=== PATIENT | male | born 1945 | race Caucasian/White ===

== ENCOUNTER 2017-12-16 06:00 | Day surgery (SDC) | payer MEDICARE ==
[~2017-12-16] VITALS: Ht 182.9 cm; Wt 124.7 kg
[~2017-12-16 06:00] MED LIST: AMLO5TAB2 PO; APIX5TAB4 PO; ASPI-555 PO; ATOR80TA PO; BISO5TAB2 PO; LOSA100T2 PO; METF500T6 PO; MULT-1258 PO
[2017-12-16 06:39] VITALS: BP 150/80
[2017-12-16] MEDS ORDERED: SODIUM CHLORIDE 0.9% 1000ML 1,000 ML IV ONE (06:50)
[2017-12-16] MEDS ORDERED: FENTANYL CITRATE PF 50 MCG/1 ML 2ML VIAL ONE (07:29)
[2017-12-16] MEDS ORDERED: PROPOFOL 10 MG/ML 20ML VIAL IV ONE ×2 (07:29→07:52)
[2017-12-16] MEDS ORDERED: GLYCOPYRROLATE 0.2 MG/ML 5 ML VIAL ONE (07:29)
[2017-12-16] MEDS ORDERED: LIDOCAINE HCL 2% 20ML ONE (07:30)
[2017-12-16 07:57] VITALS: BP 100/63
== END 2017-12-16 08:28 ==
LOC: DAH 06:00
PROVIDERS: ATTEND Internal Medicine Gastroenterology
DX: Z09 Encounter for follow-up examination after completed treatment for conditions other than malignant neoplasm (principal); Z86.010 Personal history of colon polyps; K63.5 Polyp of colon; I10 Essential (primary) hypertension; I48.91 Unspecified atrial fibrillation; E11.9 Type 2 diabetes mellitus without complications; E78.5 Hyperlipidemia, unspecified; Z98.890 Other specified postprocedural states; Z68.36 Body mass index [BMI] 36.0-36.9, adult; Z79.899 Other long term (current) drug therapy
CPT/HCPCS: 45380; 82948 ×3; 88305; 93005; A4606; J2704 ×2; J3010; J3490 ×2; J7030

== ENCOUNTER 2024-02-12 05:32 | Day surgery (SDC) | payer MEDICARE ==
[~2024-02-12] VITALS: Ht 185.4 cm; Wt 120.2 kg
[2024-02-12] VITALS (12 sets, daily range): BP systolic 112–160; BP diastolic 64–86; PULSE 52–64; RESP 15–17
[~2024-02-12 05:32] MED LIST changes: +AMLO2.5T4 PO; -AMLO5TAB2 PO; +APIX5TAB PO; -APIX5TAB4 PO; -ASPI-555 PO; +ASPI-556 PO; +BISO5TAB19 PO; -BISO5TAB2 PO; +EZET10TA48 PO; +FURO20TA4 PO; +LOSA-420 PO; -LOSA100T2 PO; +METF-444 PO; -METF500T6 PO
[2024-02-12] MEDS: 0.9%NACL 1000ML 1,000 ML IV ONE (06:20)
[2024-02-12] MEDS ORDERED: LIDOCAINE HCL 1% 20 ML VIAL ONE (07:07)
[2024-02-12] MEDS ORDERED: PROPOFOL 10 MG/ML 20ML VIAL IV ONE (07:07)
[2024-02-12] MEDS ORDERED: SIMETHICONE 40 MG/0.6 ML ML ONE (07:13)
== END 2024-02-12 08:39 | disposition home or self-care (01) ==
LOC: ENDO 05:32 → DAH 05:32 → ENDO 08:39
PROVIDERS: ATTEND Internal Medicine
DX: R93.3 Abnormal findings on diagnostic imaging of other parts of digestive tract (principal); I10 Essential (primary) hypertension; E78.00 Pure hypercholesterolemia, unspecified; E11.9 Type 2 diabetes mellitus without complications; I48.91 Unspecified atrial fibrillation; Z79.82 Long term (current) use of aspirin; I25.10 Atherosclerotic heart disease of native coronary artery without angina pectoris; Z79.01 Long term (current) use of anticoagulants; Z79.84 Long term (current) use of oral hypoglycemic drugs; Z95.5 Presence of coronary angioplasty implant and graft; Z98.890 Other specified postprocedural states; Z79.899 Other long term (current) drug therapy
CPT/HCPCS: 82948 ×2; 45378; J7030 ×2; J2704; A4620; A4215 ×2; A4223; A7002; A4222; A4221; A4663; J3490

== ENCOUNTER 2024-02-13 10:10 | Day surgery (SDC) | payer MEDICARE ==
[~2024-02-13] VITALS: Ht 185.4 cm; Wt 120.2 kg
[2024-02-13] VITALS (12 sets, daily range): BP systolic 150–170; BP diastolic 71–89; PULSE 42–60; RESP 15–20
[2024-02-13] MEDS: 0.9%NACL 1000ML 1,000 ML IV ONE (11:10)
[2024-02-13] MEDS ORDERED: LIDOCAINE PF 100MG/5ML (2%) SYRINGE 5ML ONE (13:30)
[2024-02-13] MEDS ORDERED: PROPOFOL 10 MG/ML 20ML VIAL IV ONE ×2 (13:30→13:46)
== END 2024-02-13 15:15 | disposition home or self-care (01) ==
LOC: DAH 10:10 → ENDO 10:10
PROVIDERS: ATTEND Internal Medicine Gastroenterology
DX: R93.3 Abnormal findings on diagnostic imaging of other parts of digestive tract (principal); K62.1 Rectal polyp; K57.30 Diverticulosis of large intestine without perforation or abscess without bleeding; I10 Essential (primary) hypertension; E11.9 Type 2 diabetes mellitus without complications; E78.00 Pure hypercholesterolemia, unspecified; I25.10 Atherosclerotic heart disease of native coronary artery without angina pectoris; E66.9 Obesity, unspecified; I48.91 Unspecified atrial fibrillation; Z79.899 Other long term (current) drug therapy; Z79.01 Long term (current) use of anticoagulants; Z79.84 Long term (current) use of oral hypoglycemic drugs; Z79.82 Long term (current) use of aspirin; Z68.34 Body mass index [BMI] 34.0-34.9, adult; Z95.5 Presence of coronary angioplasty implant and graft
CPT/HCPCS: 82948 ×2; 45380; 45385; J7030 ×2; J2001; J2704 ×2; A4620; A4215 ×2; A4223; A7002; A4222; A4221; A4663; A4606; J3490